=== PATIENT | female | born 1975 | race Caucasian/White ===

== ENCOUNTER → 2017-08-05 | Outpatient (CLI) | payer OTHER ==
[~2017-08-05] MED LIST: AMOXICILLIN 8751 TAB PO; DIFLUCAN 100MG100 MG PO; LEVAQUIN 750MG750 M1 PO; NORCO 325 MG-51 TAB PO; PRENATAL VITAMI1 TA5 PO; PROVENTIL0.09 MG/A1 IH; TESSALON P100 MG/CAP PO
== END ==
LOC: MC.RAD 07:00
DX: Z12.31 Encounter for screening mammogram for malignant neoplasm of breast (principal); Z98.82 Breast implant status

== ENCOUNTER → 2019-07-11 | Outpatient (CLI) | payer OTHER | LOC: MC.RAD 06-12 07:45 | DX: Z12.31 Encounter for screening mammogram for malignant neoplasm of breast (principal); Z98.82 Breast implant status ==

== ENCOUNTER → 2020-07-16 | Outpatient (CLI) | payer OTHER | LOC: MC.RAD 07:24 | DX: Z12.31 Encounter for screening mammogram for malignant neoplasm of breast (principal); N64.89 Other specified disorders of breast; Z98.82 Breast implant status ==

== ENCOUNTER → 2020-07-22 | Outpatient (CLI) | payer OTHER | LOC: MC.RAD 07:00 | DX: N64.89 Other specified disorders of breast (principal); Z98.82 Breast implant status ==

== ENCOUNTER → 2023-09-09 | Outpatient (CLI) | payer OTHER | LOC: MC.RAD 07:59 | DX: Z12.31 Encounter for screening mammogram for malignant neoplasm of breast (principal) ==